=== PATIENT | female | born 1945 | race Caucasian/White ===

== ENCOUNTER 2021-08-04 09:28 | Day surgery (SDC) | payer MEDICARE, OTHER, SELFPAY ==
[2021-08-04 10:22] VITALS: BP 147/81; PULSE 91; RESP 20; TEMP 36.7; O2SAT 97
[2021-08-04] MEDS: Tropicam./Phenyleph. (1/2.5%) 5 ML BTL OS ×3 (10:51→11:02)
--- NOTE | 2021-08-04 10:53 | NUR.NOTE ---
Evaluated by Lokesh Larson [employer] for S&S COPD Exacerbation. Positioned flat for trial tolerating well. Maintining O2 sats. Took MDI from home on arrival. Nebulizer Rx pending. Nursing Note:
--- NOTE | 2021-08-04 11:02 | ANES.PREOP_ITS ---
General Info Date of Service Date Performed: 08/04/21 Height: 5 ft 4.5 in Weight: 90.2 kg Body Mass Index (BMI): 33.5 Surgical Procedure: Operation Date: 08/04/21 12:25 Proposed Procedure Side Surgeon p Cataract Extraction with IOL Implant Left Luigi Bosch MD Meds Allergies and Home Medications Allergies Allergy/AdvReac Type Severity Reaction Status Date / Time bee venom protein (honey bee) Allergy Severe Hives Verified 08/04/21 10:18 budesonide [From Symbicort] Allergy Severe swollen Verified 08/04/21 10:18 lips formoterol [From Symbicort] Allergy Severe swollen Verified 08/04/21 10:18 lips hydrochlorothiazide Allergy Severe unknown Verified 08/04/21 10:18 morphine Allergy Severe SOB Verified 08/04/21 10:18 pantoprazole Allergy Severe unknown Verified 08/04/21 10:18 salmeterol Allergy Severe unknown Verified 08/04/21 10:18 verapamil Allergy Severe swollen Verified 08/04/21 10:18 eyes amlodipine Allergy Intermediate Other (See Verified 08/04/21 10:18 Comment) moxifloxacin Allergy Intermediate unknown Verified 08/04/21 10:18 Penicillins Allergy Intermediate unknown Verified 08/04/21 10:18 quinapril Allergy Intermediate unknown Verified 08/04/21 10:18 tiotropium Allergy Intermediate unknown Verified 08/04/21 10:18 [From Spiriva with HandiHaler] fluticasone AdvReac Severe increased Verified 08/04/21 10:18 [From Advair Diskus] urination ciprofloxacin AdvReac Intermediate pain Verified 08/04/21 10:18 sulfamethoxazole AdvReac Intermediate upset Verified 08/04/21 10:18 [From Bactrim] stomach trimethoprim [From Bactrim] AdvReac Intermediate upset Verified 08/04/21 10:18 stomach IVP Dye Allergy Severe Anaphylaxis Uncoded 08/02/21 14:22 seafood Allergy Intermediate Anaphylaxis Uncoded 08/02/21 14:22 Home Medication Medication Instructions Recorded Proventil 1 puff INHALATION Q4H PRN 03/13/11 amiloride 5 mg tablet 5 mg PO BID 08/02/21 aspirin 81 mg capsule,delayed 81 mg PO DAILY 08/02/21 release cholecalciferol (vitamin D3) 25 25 mcg PO DAILY 08/02/21 mcg (1,000 unit) capsule (Vitamin D3) hydralazine 25 mg tablet 25 mg PO BID 08/02/21 ipratropium 0.5 mg-albuterol 3 mg 3 ml INHALATION Q6H PRN 08/02/21 (2.5 mg base)/3 mL nebulization soln prednisone 10 mg tablet 10 mg PO DIRECTED 08/02/21 vitamin B complex 1 cap PO DAILY 08/02/21 vitamin E 400 unit tablet 400 mg PO DAILY 08/02/21 Current Visit Medications: Current Medications Generic Name Dose Route Start Last Admin Trade Name Freq PRN Reason Stop Dose Admin Acetaminophen 1,000 mg 08/04/21 06:00 Acetaminophen 500 Mg Tab PO Q4H PRN PRN Miscellaneous Medication 0 ml 08/04/21 06:00 Prednisolone 1%, Moxifloxacin 0.5%, Nepafenac 0.1% 5ml Btl OS DIRECTED [facility] Miscellaneous Medication 0 ml 08/04/21 06:00 08/04/21 10:56 Tropicam./Phenyleph. (1/2.5%) 5 Ml Btl OS 1 drp DIRECTED [facility] Administration Naloxone HCl 0 mg 08/04/21 10:51 Naloxone 0.4 Mg/Ml Vial IVP PRN PRN Tetracaine HCl 0 ml 08/04/21 06:00 Tetracaine 0.5% 4 Ml Btl OS DIRECTED [facility] PFSH Active Problems Active Problems: Problem Status Onset Code Nuclear sclerotic cataract of left eye H25.12 Medical History Medical History A-fib Anxiety Anxiety and depression Barretts esophagus CAD (coronary artery disease) COPD with emphysema Severe per PCP note on chronic O2 Depression Environmental allergies Goiter HTN (hypertension) Chronic o2 2L 24/7 Hypoxemia Left atrial enlargement Mitral regurgitation per pt. does not see registered nurse Multiple gallstones Nonalcoholic fatty liver disease Pancreatitis Panic disorder Right renal mass Surgical History Surgical History (Updated 08/04/21 @ 10:16 by Braden Baker) History of lumpectomy of left breast Hx laparoscopic cholecystectomy Hx of appendectomy Hx of hysterectomy Tobacco Smoking/Tobacco Use Status: Former Tobacco Use Alcohol Alcohol Intake: never Substance Use Substance use: Never Substance use type: does not use Vital Signs and Lab Results Vital Signs Most Recent Vital Signs in EMR: Most Recent Vital Signs Temp Pulse Resp BP Pulse Ox 36.7 C 91 H 20 147/81 H 97 08/04/21 10:22 08/04/21 10:22 08/04/21 10:22 08/04/21 10:22 08/04/21 10:22 Lab Results Blood Type / Crossmatch: No Data to Display Complete Blood Count: No Data to Display Complete Metabolic Panel: No Data to Display Liver Function Panel: No Data to Display Coagulation Panel: No Data to Display Cardiac Panel: No Data to Display Arterial Blood Gas: No Data to Display Venous Blood Gas: No Data to Display Pancreas Panel: No Data to Display Thyroid Panel: No Data to Display Infectious Disease: No Data to Display Blood Cultures: No Data to Display Toxicology Panel: No Data to Display Anesthesia Assessment and Plan Anesthesia History Personal History: No History of Anesthesia Complications Family History: No Family History of Anesthesia Complications Exercise Tolerance Exercise Tolerance: Metabolic Equivalents<4 Pertinent Negatives Pertinent Negatives: No Symptoms of GERD Cardiac & Pulmonary Exam Cardiac Exam: Normal S1/S2 Heart Sounds Pulmonary Exam: Wheezing Present Implantable Cardiac Device Does patient have a Pacemaker or an ICD?: No Airway Exam Known Difficult Airway: No Mallampati Class: 3 Mouth Opening: Normal (> 3cm) Thyromental Distance: Greater than 3 cm Neck Range of Motion: Full ROM Neck Circumference: Thick Teeth Condition: Normal Dentition and Edentulous (Upper) ASA Classification ASA Score: ASA 4 Emergency Case?: No NPO Status NPO Status: NPO Clears >2 hours, Solids >8 hours Anesthesia Plan Resuscitation Status: Full Code Anesthesia Technique: MAC Anesthesia Airway Planned: Natural Airway Monitors Used: Standard Monitors
[2021-08-04] MEDS: Albuterol/Ipratropium 3 ML UPD VIAL UPD (11:04)
--- NOTE | 2021-08-04 11:15 | NUR.NOTE ---
Improved lung sounds after neb Rx. Increased audible inspiratory wheeze RLL with faint inspiratory and expiratory wheeze remaining right lung. Left lung clear with improved aeration. Nursing Note:
[2021-08-04 11:32] VITALS: BMI 33.5
[2021-08-04] MEDS: Tetracaine 0.5% 4 ML BTL OS (11:48)
[2021-08-04] MEDS: Balanced Salt Soln.-PLUS 500 ML BAG (11:48)
[2021-08-04] MEDS: Lidocaine 2% Jelly 6 ML SYR (11:49)
[2021-08-04] MEDS: Duovisc Viscoelastic System EACH 1 EACH (11:49)
[2021-08-04] MEDS: Povidone-Iodine Ophth 30 ML BTL (11:51)
[2021-08-04 12:13] VITALS: BP 148/67; PULSE 74; RESP 18; TEMP 36.2; O2SAT 98
--- NOTE | 2021-08-04 12:14 | ROE_ITS ---
Date of service: 08/04/21 Time of Service: 12:14 Operative Note Operative Note DATE OF PROCEDURE: 08/04/21 PRE-OP DIAGNOSIS: Nuclear cataract, left eye POST-OP DIAGNOSIS: same PROCEDURE: Cataract extraction using phacoemulsification with intraocular lens implant, left eye SURGEON: Luigi Bosch ANESTHESIA TYPE: Local By Surgeon and MAC Refer to Anesthesia Record PATHOLOGY: none sent COMPLICATIONS: None Patient was transported to: same day Patient's condition: stable Implants: Marcio and Marcio / [employer] Tecnis [id number] Indications: Progressive decreased vision due to cataract, left eye Procedure Description: CATARACT SURGERY OPERATIVE REPORT PREOPERATIVE DIAGNOSIS: 1. Nuclear cataract, left eye POSTOPERATIVE DIAGNOSIS: Same OPERATION: 1. Cataract extraction using phacoemulsification with posterior chamber intraocular lens implant, left eye. IOL: IOL Community Integration Specialist/Model: Marcio & Marcio / JESSE Tecnis [id number] IOL Power: + 23.0 diopters IOL Serial Number: [id number] Optic Diameter: 6.0 mm Haptic/Overall Diameter: 13.0 mm PHACO INFO: Ray TruQuurion Vision System with OZil and Active Fluidics Cumulative Dispersed Energy (CDE): 19.15 seconds SURGEON: Luigi Bosch MD, SELENE ANESTHESIA: Monitored A [facility] (MAC), with local sub-tenon's anesthetic infiltration COMPLICATIONS: None SPECIMENS: None INDICATIONS FOR PROCEDURE: The patient is a 76-year-old lady with history of diminished visual acuity in her left eye secondary to the development of dense nuclear cataract. The option of cataract surgery was offered to the patient and she wished to proceed. PROCEDURE: The correct surgical eye was identified and marked as the left eye and the pupil was dilated in the preoperative area using mydriatics and cycloplegics. The dilated pupil size was 6.5 mm. She elected to proceed without oral sedation.. The patient was brought to the operating room where cardiopulmonary monitoring was instituted and surgical time-out was performed, confirming the correct operative eye and IOL power. Topical anesthesia was administered and ophthalmic povidone-iodine 5% was instilled into the conjunctival fornices. Lidocaine gel was applied to the cornea and the tali-ocular area was prepped with Betadine 10% solution and draped in the usual sterile fashion for intraocular surgery, including an aperture drape. A Tegaderm transparent film dressing was cut in half and used to cover the lashes and lid margins. Care was taken to sequester the lashes and lid margins under the Tegaderm dressing. A lid speculum was placed between the lids of the operative eye and the Ray LuxOR Revalia operating microscope was maneuvered into position. Guy scissors were then used to make a conjunctival buttonhole approximately 6mm posterior to the limbus in the inferonasal quadrant. Blunt dissection was carried out to expose bare sclera, and a blunt-tipped sub-tenon?s anesthesia cannula was introduced and passed posteriorly along the globe where non- preserved plain lidocaine was injected into posterior sub-Tenon?s space. A sideport knife was used to make a paracentesis port superiorly/superiortemporally. Intraocular phenylephrine/lidocaine was injected int the anterior chamber.. The anterior chamber was filled with viscoelastic. A 2.4mm keratome knife was used to create a half-thickness groove at the limbus and then to construct a three-plane near-clear corneal tunnel extending 2.0mm into clear cornea at the 3:00 position. A flap was raised on the anterior capsule and capsulorhexis forceps were used to complete a continuous curvilinear capsulorhexis of 4.8 mm. Some zonular laxity was noted. The anterior chamber was quite shallow, so additional viscoelastic was used to deepen the anterior chamber during capsulorrhexis formation. Balanced salt solution was then used to perform cortical cleaving hydrodissection and nuclear hydrodelineation until the lens could be freely rotated within the capsular bag. The lens nucleus was then disassembled and removed within the capsular bag and iris plane using phacoemulsification. Residual cortical material was removed using the 45-degree angled silicone I/A tip with 0.3mm port. The posterior capsule was carefully polished to remove as much residual lens epithelial cells as safely possible. The capsular bag was then inflated and the anterior chamber deepened with viscoelastic. The lens implant described above was inserted into the capsular bag using the JESSE Lillian Injector. A Kuglen hook was used to dial the IOL into position. Residual viscoelastic was then removed first from posterior to the IOL, then from the anterior chamber using the I/A handpiece. The lens implant was noted to center nicely within the capsular bag. The incisions were stromally hydrated, and the anterior chamber was reformed using BSS. Then 0.5cc of moxifloxacin 1.0mg/ml were injected into the capsular bag and anterior chamber. The incisions were checked with a Weck spear and found to be secure. Several drops of ophthalmic povidone-iodine 5% were then applied to the eye followed by two drops of Imprimis combination prednisolone/moxifloxacin/nepafenac solution. The drapes were removed and a clear plastic protective eye shield was placed over the eye. The patient was then returned to [facility] Day Surgery in stable condition.
--- NOTE | 2021-08-04 12:14 | W.PM.DSUDISC ---
Discharge Plan Disposition Patient Disposition: HOME Condition: Good Discharge Details Attending Provider: Luigi Bosch Primary Care Provider: Rigo Barger Home Meds and New Rx's Prescriptions: No Action PROVENTIL 17 GM aerosol 1 puff inhalation Q4H PRN0RF ipratropium-albuterol 0.5 mg-3 mg(2.5 mg base)/3 mL Solution For Nebulization 3 ml INHALATION Q6H PRN0RF hydralazine 25 mg Tablet 25 mg PO BID 0RF aspirin 81 mg Capsule,Delayed Release(Dr/Ec) 81 mg PO DAILY 0RF amiloride 5 mg Tablet 5 mg PO BID 0RF vitamin E 400 unit Tablet 400 mg PO DAILY 0RF vitamin B complex Capsule 1 cap PO DAILY 0RF cholecalciferol (vitamin D3) [Vitamin D3] 25 mcg (1,000 unit) Capsule 25 mcg PO DAILY 0RF prednisone 10 mg Tablet 10 mg PO DIRECTED 0RF Rx Instructions: 40mg, 30mg, 20mg, 10mg taper Discharge Instructions Stand Alone Forms: Post-op Topical Cataract, Edvin Nye (DSU) Discharge Orders Discharge Orders: Discharge Order (Routine); Ordered 08/04/21 Ordered By: Luigi Bosch DS: Diagnosis Discharge Diagnosis (1) Nuclear sclerotic cataract of left eye: Status: Resolved
--- NOTE | 2021-08-04 12:27 | W.ANESPOSTOP ---
Postoperative Evaluation Date, Time and Location Date Performed: 08/04/21 Time Performed: 12:27 Patient Location: Day Surgery Unit Vital Signs Most Recent Imported Vital Signs: Most Recent Vital Signs Temp Pulse Resp BP Pulse Ox 36.2 C L 74 18 148/67 H 98 08/04/21 12:13 08/04/21 12:13 08/04/21 12:13 08/04/21 12:13 08/04/21 12:13 Pain Score Most Recent Pain Score: Most Recent Pain Score Pain Level 0 08/04/21 12:13 Assessment Mental Status: Awake (Alert & Oriented to Patient Baseline) Airway and Respiratory Function: Patent airway with normal (patient baseline) respiratory exam Cardiovascular Function: Hemodynamically Stable Hydration Status: Adequately Hydrated Nausea & Vomiting: No Nausea or Vomiting Pain: Pt. Denies Any Pain Peripheral Nerve Block: Patient did not receive a nerve block Postoperative Comments:: Pt. will continue PO steroids for COPD exacerbation and will followup with PCP if she develops worsening symptoms or fever/chills.
== END 2021-08-04 12:45 | disposition home or self-care (01) ==
PROVIDERS: PCP Family Medicine; Visit Provider Ophthalmology
PROC: (CPT 66984; principal; 2021-08-04 12:15)
DX: H25.12 Age-related nuclear cataract, left eye (principal)
CPT/HCPCS: 66984; V2632; J7620

== ENCOUNTER 2021-08-14 08:12 | Day surgery (SDC) | payer MEDICARE, OTHER, SELFPAY ==
[2021-08-14] MEDS: Tropicam./Phenyleph. (1/2.5%) 5 ML BTL OD ×3 (08:44→08:58)
[2021-08-14 08:45] VITALS: BP 126/82; PULSE 97; RESP 20; TEMP 36.5; O2SAT 97
--- NOTE | 2021-08-14 09:19 | ANES.PREOP_ITS ---
General Info Date of Service Date Performed: 08/14/21 Height: 5 ft 4.5 in Weight: 91 kg Body Mass Index (BMI): 33.9 Surgical Procedure: Operation Date: 08/14/21 09:55 Proposed Procedure Side Surgeon p Cataract Extraction with IOL Implant Right Luigi Bosch MD Meds Allergies and Home Medications Allergies Allergy/AdvReac Type Severity Reaction Status Date / Time bee venom protein (honey bee) Allergy Severe Hives Verified 08/14/21 08:38 budesonide [From Symbicort] Allergy Severe swollen Verified 08/14/21 08:38 lips formoterol [From Symbicort] Allergy Severe swollen Verified 08/14/21 08:38 lips hydrochlorothiazide Allergy Severe unknown Verified 08/14/21 08:38 morphine Allergy Severe SOB Verified 08/14/21 08:38 pantoprazole Allergy Severe unknown Verified 08/14/21 08:38 salmeterol Allergy Severe unknown Verified 08/14/21 08:38 verapamil Allergy Severe swollen Verified 08/14/21 08:38 eyes amlodipine Allergy Intermediate Other (See Verified 08/14/21 08:38 Comment) moxifloxacin Allergy Intermediate unknown Verified 08/14/21 08:38 Penicillins Allergy Intermediate unknown Verified 08/14/21 08:38 quinapril Allergy Intermediate unknown Verified 08/14/21 08:38 tiotropium Allergy Intermediate unknown Verified 08/14/21 08:38 [From Spiriva with HandiHaler] fluticasone AdvReac Severe increased Verified 08/14/21 08:38 [From Advair Diskus] urination ciprofloxacin AdvReac Intermediate pain Verified 08/14/21 08:38 sulfamethoxazole AdvReac Intermediate upset Verified 08/14/21 08:38 [From Bactrim] stomach trimethoprim [From Bactrim] AdvReac Intermediate upset Verified 08/14/21 08:38 stomach IVP Dye Allergy Severe Anaphylaxis Uncoded 08/14/21 08:38 seafood Allergy Intermediate Anaphylaxis Uncoded 08/14/21 08:38 Home Medication Medication Instructions Recorded Proventil 1 puff INHALATION Q4H PRN 03/13/11 amiloride 5 mg tablet 5 mg PO BID 08/02/21 aspirin 81 mg capsule,delayed 81 mg PO DAILY 08/02/21 release cholecalciferol (vitamin D3) 25 25 mcg PO DAILY 03/23/22 mcg (1,000 unit) capsule (Vitamin D3) hydralazine 25 mg tablet 25 mg PO BID 08/02/21 ipratropium 0.5 mg-albuterol 3 mg 3 ml INHALATION Q6H PRN 08/02/21 (2.5 mg base)/3 mL nebulization soln vitamin B complex 1 cap PO DAILY 08/02/21 vitamin E 400 unit tablet 400 mg PO DAILY 08/02/21 Current Visit Medications: Current Medications Generic Name Dose Route Start Last Admin Trade Name Freq PRN Reason Stop Dose Admin Acetaminophen 1,000 mg 08/14/21 06:00 Acetaminophen 500 Mg Tab PO Q4H PRN PRN Miscellaneous Medication 0 ml 08/14/21 06:00 Prednisolone 1%, Moxifloxacin 0.5%, Nepafenac 0.1% 5ml Btl OD DIRECTED [facility] Miscellaneous Medication 0 ml 08/14/21 06:00 08/14/21 08:58 Tropicam./Phenyleph. (1/2.5%) 5 Ml Btl OD 1 drp DIRECTED [facility] Administration Tetracaine HCl 0 ml 08/14/21 06:00 Tetracaine 0.5% 4 Ml Btl OD DIRECTED [facility] PFSH Active Problems Active Problems: Problem Status Onset Code Nuclear sclerotic cataract of right eye H25.11 Nuclear sclerotic cataract of left eye H25.12 Medical History Medical History A-fib Anxiety Anxiety and depression Barretts esophagus CAD (coronary artery disease) COPD with emphysema Severe per PCP note on chronic O2 Depression Environmental allergies Goiter HTN (hypertension) Chronic o2 2L 24/7 Hypoxemia Left atrial enlargement Mitral regurgitation 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 Multiple gallstones Nonalcoholic fatty liver disease Pancreatitis Panic disorder Right renal mass Surgical History Surgical History History of lumpectomy of left breast Hx laparoscopic cholecystectomy Hx of appendectomy Hx of hysterectomy Tobacco Smoking/Tobacco Use Status: Former Tobacco Use Alcohol Alcohol Intake: never Substance Use Substance use: Never Substance use type: does not use Vital Signs and Lab Results Vital Signs Most Recent Vital Signs in EMR: Most Recent Vital Signs Temp Pulse Resp BP Pulse Ox 36.5 C 97 H 20 126/82 97 08/14/21 08:45 08/14/21 08:45 08/14/21 08:45 08/14/21 08:45 08/14/21 08:45 Lab Results Blood Type / Crossmatch: No Data to Display Complete Blood Count: No Data to Display Complete Metabolic Panel: No Data to Display Liver Function Panel: No Data to Display Coagulation Panel: No Data to Display Cardiac Panel: No Data to Display Arterial Blood Gas: No Data to Display Venous Blood Gas: No Data to Display Pancreas Panel: No Data to Display Thyroid Panel: No Data to Display Infectious Disease: No Data to Display Blood Cultures: No Data to Display Toxicology Panel: No Data to Display Anesthesia Assessment and Plan Anesthesia History Personal History: No History of Anesthesia Complications Family History: No Family History of Anesthesia Complications Exercise Tolerance Exercise Tolerance: Metabolic Equivalents<4 Cardiac & Pulmonary Exam Cardiac Exam: Normal S1/S2 Heart Sounds Pulmonary Exam: Wheezing Present Implantable Cardiac Device Does patient have a Pacemaker or an ICD?: No Airway Exam Known Difficult Airway: No Mallampati Class: 3 Mouth Opening: Normal (> 3cm) Thyromental Distance: Greater than 3 cm Neck Range of Motion: Full ROM Neck Circumference: Thick Teeth Condition: Normal Dentition and Edentulous (Upper) ASA Classification ASA Score: ASA 4 Emergency Case?: No NPO Status NPO Status: NPO Clears >2 hours, Solids >8 hours Anesthesia Plan Resuscitation Status: Full Code Anesthesia Technique: MAC Anesthesia Airway Planned: Natural Airway Pain Management: Surgeon and patient request nerve block Monitors Used: Standard Monitors
[2021-08-14 09:42] VITALS: BMI 33.9
[2021-08-14] MEDS: Tetracaine 0.5% 4 ML BTL OD (09:59)
[2021-08-14] MEDS: Balanced Salt Soln.-PLUS 500 ML BAG (10:00)
[2021-08-14] MEDS: Duovisc Viscoelastic System EACH 1 EACH (10:00)
[2021-08-14] MEDS: Lidocaine 2% Jelly 6 ML SYR (10:01)
[2021-08-14] MEDS: Povidone-Iodine Ophth 30 ML BTL (10:03)
--- NOTE | 2021-08-14 10:21 | W.PM.DSUDISC ---
Discharge Plan Disposition Patient Disposition: HOME Condition: Good Discharge Details Attending Provider: Luigi Bosch Primary Care Provider: Rigo Barger Home Meds and New Rx's Prescriptions: No Action PROVENTIL 17 GM aerosol 1 puff inhalation Q4H PRN0RF ipratropium-albuterol 0.5 mg-3 mg(2.5 mg base)/3 mL Solution For Nebulization 3 ml INHALATION Q6H PRN0RF hydralazine 25 mg Tablet 25 mg PO BID 0RF aspirin 81 mg Capsule,Delayed Release(Dr/Ec) 81 mg PO DAILY 0RF amiloride 5 mg Tablet 5 mg PO BID 0RF vitamin E 400 unit Tablet 400 mg PO DAILY 0RF vitamin B complex Capsule 1 cap PO DAILY 0RF cholecalciferol (vitamin D3) [Vitamin D3] 25 mcg (1,000 unit) Capsule 25 mcg PO DAILY 0RF Discharge Instructions Stand Alone Forms: Post-op Topical Cataract, Press Ganey (DSU) Discharge Orders Discharge Orders: Discharge Order (Routine); Ordered 08/14/21 Ordered By: Luigi Bosch DS: Diagnosis Discharge Diagnosis (1) Nuclear sclerotic cataract of right eye: Status: Resolved
[2021-08-14 10:22] VITALS: BP 139/81; PULSE 86; RESP 16; TEMP 36.6; O2SAT 100
--- NOTE | 2021-08-14 10:22 | W.PM.OP ---
Date of service: 08/14/21 Time of Service: 10: Operative Note Operative Note DATE OF PROCEDURE: 08/14/21 PRE-OP DIAGNOSIS: Nuclear cataract, right eye POST-OP DIAGNOSIS: same PROCEDURE: Cataract extraction using phacoemulsification with intraocular lens implant, right eye SURGEON: Luigi Bosch ANESTHESIA TYPE: Local By Surgeon and MAC Refer to Anesthesia Record ESTIMATED BLOOD LOSS: 0 PATHOLOGY: none sent COMPLICATIONS: None Patient was transported to: same day Patient's condition: stable Implants: [employer]/JESSE [employer] [id number] Indications: Progressive visual loss due to cataract, right eye Procedure Description: CATARACT SURGERY OPERATIVE REPORT PREOPERATIVE DIAGNOSIS: 1. Nuclear cataract, right eye POSTOPERATIVE DIAGNOSIS: Same OPERATION: 1. Cataract extraction using phacoemulsification with posterior chamber intraocular lens implant, right eye. IOL: IOL [employer]/Model: [employer] Marc[employer] / JESSE [employer] [id number] IOL Power: + 23.5 point diopters IOL Serial Number: [id number] Optic Diameter: 6.0mm Haptic/Overall Diameter: 13.0mm PHACO INFO: Ray[employer]aurion Vision System with OZil and Active Fluidics Cumulative Dispersed Energy (CDE): 18.03 seconds SURGEON: Luigi Bosch MD, SELENE ANESTHESIA: Monitored Anesthesia Care (MAC), with local sub-tenon's anesthetic infiltration COMPLICATIONS: None SPECIMENS: None INDICATIONS FOR PROCEDURE: The patient is a 76-year-old lady with a 5 of diminished visual acuity in both eyes secondary to the development and bilateral nuclear cataract new. She has already undergone cataract surgery in the left eye and is in the well postoperatively. She now presents with cataract surgery in the right eye. Right PROCEDURE: The correct surgical eye was identified and marked as the right eye and the pupil was dilated in the preoperative area using mydriatics and cycloplegics. The dilated pupil size was 7.0 mm. She elected to proceed without oral sedation. The patient was brought to the operating room where cardiopulmonary monitoring was instituted and surgical time-out was performed, confirming the correct operative eye and IOL power. Topical anesthesia was administered and ophthalmic povidone-iodine 5% was instilled into the conjunctival fornices. Lidocaine gel was applied to the cornea and the tali-ocular area was prepped with Betadine 10% solution and draped in the usual sterile fashion for intraocular surgery, including an aperture drape. A Tegaderm transparent film dressing was cut in half and used to cover the lashes and lid margins. Care was taken to sequester the lashes and lid margins under the Tegaderm dressing. A lid speculum was placed between the lids of the operative eye and the Ray [employer] operating microscope was maneuvered into position. Guy scissors were then used to make a conjunctival buttonhole approximately 6mm posterior to the limbus in the inferonasal quadrant. Blunt dissection was carried out to expose bare sclera, and a blunt-tipped sub-tenon?s anesthesia cannula was introduced and passed posteriorly along the globe where non-preserved plain lidocaine was injected into posterior sub-Tenon?s space. A sideport knife was used to make a paracentesis port inferotemporally. Intraocular phenylephrine/lidocaine was injected into the anterior chamber. The anterior chamber was filled with viscoelastic. A 2.4mm keratome knife was used to create a half-thickness groove at the limbus and then to construct a three-plane near-clear corneal tunnel extending 2.0mm into clear cornea superiortemporally. A flap was raised on the anterior capsule and capsulorhexis forceps were used to complete a continuous curvilinear capsulorhexis of 5.0mm. Balanced salt solution was then used to perform cortical cleaving hydrodissection and nuclear hydrodelineation until the lens could be freely rotated within the capsular bag. The lens nucleus was then disassembled and removed within the capsular bag and iris plane using phacoemulsification. Residual cortical material was removed using the I/A handpiece. The posterior capsule was carefully polished to remove as much residual lens epithelial cells as safely possible. The capsular bag was then inflated and the anterior chamber deepened with viscoelastic. The lens implant described above was inserted into the capsular bag using the [employer] Injector. A Kuglen hook was used to dial the IOL into position. Residual viscoelastic was then removed first from posterior to the IOL, then from the anterior chamber using the I/A handpiece. The lens implant was noted to center nicely within the capsular bag. The incisions were stromally hydrated, and the anterior chamber was reformed using BSS. Then 0.5cc of moxifloxacin 1.0mg/ml were injected into the capsular bag and anterior chamber. The incisions were checked with a Weck spear and found to be secure. Several drops of ophthalmic povidone-iodine 5% were then applied to the eye followed by two drops of Imprimis combination prednisolone/moxifloxacin/nepafenac solution. The drapes were removed and a clear plastic protective eye shield was placed over the eye. The patient was then returned to [facility] Day Surgery in stable condition.
--- NOTE | 2021-08-14 10:31 | W.ANESPOSTOP ---
Postoperative Evaluation Date, Time and Location Date Performed: 08/14/21 Time Performed: 10:25 Patient Location: Day Surgery Unit Vital Signs Most Recent Imported Vital Signs: Most Recent Vital Signs Temp Pulse Resp BP Pulse Ox 36.6 C 86 16 139/81 100 08/14/21 10:22 08/14/21 10:22 08/14/21 10:08/14/21 10:08/14/21 10:22 Pain Score Most Recent Pain Score: Most Recent Pain Score Pain Level 0 08/14/21 10:22 Assessment Mental Status: Awake (Alert & Oriented to Patient Baseline) Airway and Respiratory Function: Patent airway with normal (patient baseline) respiratory exam Cardiovascular Function: Hemodynamically Stable Hydration Status: Adequately Hydrated Nausea & Vomiting: No Nausea or Vomiting Pain: Pt. Denies Any Pain Peripheral Nerve Block: Patient did not receive a nerve block
== END 2021-08-14 10:52 | disposition home or self-care (01) ==
PROVIDERS: PCP Family Medicine; Visit Provider Ophthalmology
PROC: (CPT 66984; principal; 2021-08-14 09:45)
DX: H25.11 Age-related nuclear cataract, right eye (principal); I48.91 Unspecified atrial fibrillation; I25.10 Atherosclerotic heart disease of native coronary artery without angina pectoris; J44.9 Chronic obstructive pulmonary disease, unspecified; I10 Essential (primary) hypertension
CPT/HCPCS: 66984; V2632